=== PATIENT | male | born 1985 | race Caucasian/White ===

== ENCOUNTER 2018-08-05 09:45 | Emergency (ER) | payer OTHER ==
[2018-08-05 10:57] VITALS: BP 134/82
[2018-08-05] MEDS ORDERED: Tetracaine 0.5% OPTH.SOL 4 ML* 1 DROP BTL LEFT EYE ONE (11:17)
[2018-08-05] MEDS ORDERED: Fluorescein Sodium TOPICAL* 1 MG TEST STRIP OPHTHALMIC ONE (11:17)
--- NOTE | 2018-08-05 12:28 | ED ---
Throat Pain/Nasal Congestion - HPI Summary HPI Summary: pt was at work and he accidentally hit a piece of wood with his eye. he states that he turned his head and there was a piece of wood there that he did not know was there. he has had some mild blurriness. he does not think his tetanus is up to date. - History of Current Complaint Chief Complaint: UCEye Hx Obtained From: Patient Onset/Duration: Sudden Onset Severity: Mild Associated Signs And Symptoms: Positive: Negative - Epiglottits Risk Factors Epiglottis Risk Factors: Negative - Allergies/Home Medications Allergies/Adverse Reactions: Allergies Allergy/AdvReac Type Severity Reaction Status Date / Time No Known Allergies Allergy Verified 08/05/18 10:48 Home Medications: Home Medications Acetaminophen [Pain Relief] 1,000 mg PO Q8H PRN 08/05/18 [History Confirmed 05/15] PMH/Surg Hx/FS Hx/Imm Hx Previously Healthy: Yes - Surgical History Surgery Procedure, Year, and Place: HERNIA REPAIR AGE 9 Infectious Disease History: No Infectious Disease History: Denies: Traveled Outside the [place] in Last 30 Days - Social History Alcohol Use: Rare Substance Use Type: Reports: None Smoking Status (MU): Never Smoked Tobacco Review of Systems Constitutional: Negative Positive: Blurred Vision - mild, Erythema. Negative: Photophobia, Diplopia, Drainage ENT: Negative Cardiovascular: Negative Respiratory: Negative Gastrointestinal: Negative Genitourinary: Negative Musculoskeletal: Negative Skin: Negative Neurological: Negative Psychological: Normal All Other Systems Reviewed And Are Negative: No Physical Exam Triage Information Reviewed: Yes Vital Signs On Initial Exam: Initial Vitals Temp Pulse Resp BP Pulse Ox 97.8 F 66 16 134/82 99 08/05/18 10:51 08/05/18 10:51 08/05/18 10:51 08/05/18 10:51 08/05/18 10:51 Vital Signs Reviewed: Yes Appearance: Positive: Well-Appearing, No Pain Distress, Well-Nourished Skin: Positive: Warm, Dry, Other - small abrasion to right inferior eye. Eyes: Positive: Conjunctiva Inflammed ENT: Positive: Normal ENT inspection, Hearing grossly normal, Pharynx normal Neck: Positive: Supple, Nontender Respiratory/Lung Sounds: Positive: Clear to Auscultation, Breath Sounds Present Cardiovascular: Positive: Normal, RRR Abdomen Description: Positive: Nontender, Soft Bowel Sounds: Positive: Present Musculoskeletal: Positive: Normal, Strength/ROM Intact Neurological: Positive: Normal, Sensory/Motor Intact, CN Intact II-III Psychiatric: Positive: Normal AVPU Assessment: Alert Diagnostics - Vital Signs Vital Signs Temp Pulse Resp BP Pulse Ox 08/05/18 10:51 97.8 F 66 16 134/82 99 - Laboratory Lab Statement: Any lab studies that have been ordered have been reviewed, and results considered in the medical decision making process. EENT Course/Dx - Course Course Of Treatment: I applied tetracine to right eye. the eye was stained with fluoroscein. there was an abrasion from 6-8 o'clock. the eyelid was everted. no foreign body noted. a rx for erythromycin ophth ointment sent to pt's pharmacy. he was instructed to get his td shot at his pcp and to take tylenol and motrin for pain. - Diagnoses Provider Diagnoses: Corneal abrasion, right Discharge - Sign-Out/Discharge Documenting (check all that apply): Patient Departure All imaging exams completed and their final reports reviewed: No Studies - Discharge Plan Condition: Stable Disposition: HOME Prescriptions: Erythromycin OPTH OINT* [Erythromycin 0.5% OPTH OINT*] 1 applic BOTH EYES TID 5 Days #1 ophth.oint Patient Education Materials: Corneal Abrasion (ED) Referrals: No Primary Care Phys,NOPCP [Primary Care Provider] - Additional Instructions: apply the antibiotic ointment to your right eye as instructed. take tylenol and motrin for pain. return if worse or any new symptoms. It is important to follow up with your primary care physician as instructed. please followup with your doctor for your tetanus shot. - Billing Disposition and Condition Condition: STABLE Disposition: Home
== END 2018-08-05 12:37 | disposition home or self-care (01) ==
LOC: UCCORT 09:45
DX: S05.01XA Injury of conjunctiva and corneal abrasion without foreign body, right eye, initial encounter (principal); W22.8XXA Striking against or struck by other objects, initial encounter; Y92.9 Unspecified place or not applicable
CPT/HCPCS: 99202; A9270-GY; G0463